=== PATIENT | female | born 1975 | race Caucasian/White ===

== ENCOUNTER 2017-09-25 10:47 | Emergency (ER) | payer OTHER ==
[~2017-09-25] VITALS: Ht 180.3 cm; Wt 117.9 kg
--- NOTE | 2017-09-25 11:10 | ED CARDIAC/CP/PALPITATIONS ---
History of Present Illness General Chief Complaint: Chest Pain Stated Complaint: TROUBLE BREATHING, CHEST PAIN, HAND TINGLES Source: patient, old records Exam Limitations: no limitations Vital Signs & Intake/Output Vital Signs & Intake/Output Vital Signs Date Time Temp Pulse Resp B/P B/P Pulse O2 O2 Flow FiO2 Mean Ox Delivery Rate 09/25 1516 98.4 84 18 149/78 99 ED Intake and Output 09/26 0000 09/25 1200 Intake Total 0 Output Total Balance 0 Intake, Oral 0 Patient 117.934 kg Weight Weight Reported by Patient Measurement Method Allergies Coded Allergies: No Known Allergies (09/25/17) Reconcile Medications Prednisone 20 MG TABLET 1 TAB PO BID ASTHMA Triage Note: PT TO ED FOR C/C OF MID EPIGASTRIC PAIN THAT STARTED ON TUESDAY WITH BLOATING TO AREA. PT THOUGHT IT WAS A HERNIA AND SAW HER SUGEON AND SAID IT WASN'T A HERNIA. PT ALSO REPORTS INCREASED SOB ESPECIALLY WALKING UP STAIRS AND PAIN AND SOB GETS WORSE WHEN PT BENDS FORWARD. ALSO REPORTS L FINGER TINGLING OVER THE LAST FEW DAYS WELL. PT HAS HX OF LYMPHEDEMA BUT DOES REPORT SWELLING IS SLIGHTLY WORSE THAN USUAL. 3/10 CHEST PAIN, WORSE WITH INSPIRATION WELL. Triage Nurses Notes Reviewed? yes : No Patient currently breastfeeds: No HPI: 41F PMH multiple abdominal surgeries (hysterectomy, cholecystectomy, caesarian sections) presenting with 2 days of worsening dyspnea with minimal exertion, upper abdominal induration and pain, intermittent bilateral hand tingling. Patient is very active and exercises 4x/week, but for the past few days has to stop after a few steps to catch her breath, which is extremely unusual for her. She has a history of asthma but is not wheezing and not short of breath at rest. She has significant abdominal pain when bending over. She denies nausea, vomiting, headache, diarrhea, dysuria, constipation. She does report left sided pleuritic chest pain that is non-exertional. She has chronic LE lymphedema with her right leg chronically bigger than her left. There has been no change in this. Past History Travel History Traveled to [place] past 21 day No Medical History Any Pertinent Medical History? see below for history EENT: allergies Respiratory: asthma Endocrine: LYMPHEDEMA Surgical History Surgical History: cholecystectomy, , hysterectomy Psychosocial History What is your primary language Wolof Tobacco Use: Never used ETOH Use: occasional use Illicit Drug Use: denies illicit drug use Family History Hx Contributory? No Review of Systems Review of Systems Constitutional: Reports: no symptoms. EENTM: Reports: no symptoms. Respiratory: Reports: no symptoms. Cardiovascular: Reports: see HPI. GI: Reports: see HPI. Genitourinary: Reports: no symptoms. Musculoskeletal: Reports: no symptoms. Skin: Reports: no symptoms. Neurological/Psychological: Reports: no symptoms. Hematologic/Endocrine: Reports: no symptoms. Immunologic/Allergic: Reports: no symptoms. All Other Systems: Reviewed and Negative Physical Exam Physical Exam General Appearance: well developed/nourished, mild distress Head: atraumatic, normal appearance Eyes: Bilateral: normal appearance. Ears, Nose, Throat: normal pharynx, normal ENT inspection, hearing grossly normal Neck: normal inspection, full range of motion Respiratory: normal breath sounds, no respiratory distress Cardiovascular: regular rate/rhythm Gastrointestinal: Indurated upper abdomen, mildly tender, no rebound or guarding Back: normal inspection, normal range of motion Extremities: normal inspection, normal range of motion Neurologic/Psych: awake, alert, oriented x 3, normal mood/affect Skin: intact, normal color, warm/dry Core Measures ACS in differential dx? No CVA/TIA Diagnosis No Sepsis Present: No Sepsis Focused Exam Completed? No Progress Differential Diagnosis: AMI, aortic dissection, atrial fibrillation, cholecystitis, CHF/pulm edema, costochondritis, hyperkalemia, hypovolemia, hyperthyroid, hyperventilation, intracranial hemorrhage, musculoskeletal pain, myocarditis, pancreatitis, pericarditis, pneumonia, pneumothorax, PSVT, pulmonary embolism, PUD/GERD, PVCs/PACs, respiratory failure, rib fracture, sepsis, unstable angina, V-fib/V-Tach, WPW syndrome Plan of Care: Orders Procedure Date/time Status Heart Healthy Diet 09/25 D Active Laboratory Tests 09/25/17 1512: Troponin I < 0.01 09/25/17 1410: D-Dimer High Sensitivty < 200 Imaging and labs negative for PE, pneumonia, or ACS. Dyspnea is likely related to URI and history of asthma. Will discharge patient on Prednisone and outpatient pulmonary follow up. Diagnostic Imaging: Viewed by Me: CT Scan. Discussed w/RAD: CT Scan. Radiology Impression: PATIENT: USHA FREITAS PRESENT AGE: 41 PATIENT ACCOUNT NO: [id number] : 75 LOCATION: [facility] ORDERING PHYSICIAN: Cory Porras MD SERVICE DATE: 09/25/17 EXAM TYPE: CAT - CTA CHEST-PULMONARY EMBOLISM EXAMINATION: CT ANGIOGRAM OF THE CHEST WITH AND WITHOUT CONTRAST (CT PULMONARY ANGIOGRAM FOR PE) CLINICAL INFORMATION: Sudden dyspnea on exertion. COMPARISON: None TECHNIQUE: Prior to contrast administration, noncontrast localization images were obtained. Subsequently, multidetector volumetric imaging was performed from the thoracic inlet to below the diaphragms following the administration of 95 mL Optiray 350 intravenous contrast. No contrast reaction reported. Sagittal, coronal, and MIP oblique sagittal reformatted images were obtained on the CT workstation, uploaded to PACS, and reviewed. Total exam dose-length product 1634 mGy-cm for combined CT of the chest, abdomen and pelvis. FINDINGS: QUALITY OF STUDY/CONTRAST BOLUS: Exam is limited due to late timing of intravenous contrast injection. There is not optimal opacification of the pulmonary arteries and exam is nondiagnostic for pulmonary embolism. THORACIC AORTA: The thoracic aorta is normal in caliber. No aneurysm or dissection. LUNG: The lungs are clear. PLEURA: There is no pleural effusion or pleural thickening. There is no pneumothorax. MEDIASTINUM: Normal heart size. No pericardial effusion. No hilar or mediastinal lymphadenopathy. No evidence of septal bowing or right heart strain. CHEST WALL/ AXILLA: No axillary or internal mammary lymphadenopathy. OSSEOUS STRUCTURES: No acute or suspicious osseous abnormality. UPPER ABDOMEN: Unremarkable. IMPRESSION : Nondiagnostic exam for pulmonary embolism due to late timing of intravenous contrast. DICTATED BY: Chantal Pollard MD DATE/TIME DICTATED:09/25/171241 ADMINISTRATIVE ASST:SABINA DATE/TIME TRANSCRIBED:09/25/171241, PATIENT: USHA FREITAS PRESENT AGE: 41 PATIENT ACCOUNT NO: [id number] : 75 LOCATION: [facility] ORDERING PHYSICIAN: Cory Porras MD SERVICE DATE: 09/25/17 EXAM TYPE: CAT - CT ABD & PELVIS W IV CONTRAST EXAMINATION: CT ABDOMEN AND PELVIS WITH CONTRAST CLINICAL INFORMATION: Epigastric pain in the indurated epigastric area. History of multiple abdominal surgeries. Evaluate for small bowel obstruction. COMPARISON: None TECHNIQUE: Multidetector volumetric imaging was performed of the abdomen and pelvis following IV administration of 95 mL of Optiray 350 intravenous contrast. Sagittal and coronal reformatted images were obtained on the technologist's workstation. DLP: 1634 mGy-cm FINDINGS: LIVER, GALLBLADDER, AND BILIARY TREE: The liver is normal in size, shape, and attenuation. No focal hepatic lesion or biliary ductal dilatation is present. The gallbladder has been removed. PANCREAS : Unremarkable. SPLEEN: Unremarkable. ADRENAL GLANDS: Unremarkable. KIDNEYS AND URETERS: The kidneys are normal in size, shape, and attenuation. No hydronephrosis, hydroureter, or calculi seen. No perinephric stranding. BLADDER: Not optimally distended but appears unremarkable. GASTROINTESTINAL TRACT: The small and large bowel are unremarkable. The appendix is unremarkable. ABDOMINAL WALL: There are 2 small upper midline ventral hernias containing fat, sagittal reconstructed image 86. The more superior is slightly to the right of midline and measures 1 cm axial image 273 series 6. The more inferior is in the midline axial image 312 series 6 and measures 1 cm. These both contain fat. There is a tiny umbilical hernia containing fat. There are postsurgical changes to the more inferior lower abdominal wall. No other hernia is seen. LYMPH NODES: There are no enlarged lymph nodes. There is no ascites. VASCULAR: The abdominal aorta is normal in caliber. PELVIC VISCERA: The uterus appears to have been removed. There is a 2.3 x 2.7 cm left adnexal cyst. Right adnexa is unremarkable. OSSEOUS STRUCTURES: Unremarkable. IMPRESSION: Two small upper ventral hernias containing fat. Tiny umbilical hernia containing fat. More inferior postsurgical changes of the lower abdominal wall. Postcholecystectomy and hysterectomy. Probable small left ovarian cyst. DICTATED BY: Atul MERINO,Chantal Pal DATE/TIME DICTATED:09/25/171246 ADMINISTRATIVE ASST:SABINA DATE/TIME TRANSCRIBED:09/25/171246 Initial ED EKG: NSR, no ST T wave changes Repeat EKG: unchanged Departure Departure Disposition: HOME OR SELF CARE Condition: Stable Clinical Impression Primary Impression: Asthma exacerbation Referrals: Janak Fischer MD, MD,Frank Cast (PCP/Family) Additional Instructions: Follow up with your pulmonary referral. If you experience worsening shortness of breath or any chest pain, return to emergency room. If you have any new or worsening symptoms, lightheadedness, or any other new symptom, return to emergency room. Departure Forms: Customer Survey General Discharge Information Prescriptions: Current Visit Scripts Prednisone 1 TAB PO BID #10 TAB Critical Care Note Critical Care Note Critical Care Time: 30-74 min General Discharge Information Prescriptions: Current Visit Scripts Prednisone 1 TAB PO BID #10 TAB
[2017-09-25 11:27] LABS: ABSOLUTE BASOPHIL COUNT 0 /CUMM (0.0-0.2); ABSOLUTE EOSINOPHIL COUNT 0.1 /CUMM (0.0-0.7); ABSOLUTE GRANULOCYTE CT 6.2 /CUMM (1.4-6.5); ABSOLUTE LYMPH COUNT 1.6 /CUMM (1.2-3.4); ABSOLUTE MONOCYTE COUNT 0.7 /CUMM (0.10-0.60); BASOPHIL % 0.5 % (0.0-2.0); EOSINOPHIL % 1.3 % (0-5); GRANULOCYTE % 71.4 % (42.2-75.2); HEMATOCRIT 44.8 % (37-47); MEAN CORPUSCULAR HGB 30.9 PG (27.0-31.0); MEAN CORPUSCULAR HGB CONC 33.5 G/DL (33.0-37.0); MEAN CORPUSCULAR VOLUME 92.4 FL (81.0-99.0); MEAN PLATELET VOLUME 9.2 FL (7.4-10.4); PLATELET COUNT 231 /CUMM (130-400); RBC DISTRIBUTION WIDTH 12.7 % (11.5-14.5); RED BLOOD CELL CT 4.85 /CUMM (4.20-5.40); WHITE BLOOD CELL COUNT 8.7 /CUMM (4.8-10.8)
--- NOTE | 2017-09-25 13:16 | CT SCAN REPORT ---
EXAMINATION: CT ANGIOGRAM OF THE CHEST WITH AND WITHOUT CONTRAST (CT PULMONARY ANGIOGRAM FOR PE) CLINICAL INFORMATION: Sudden dyspnea on exertion. COMPARISON: None TECHNIQUE: Prior to contrast administration, noncontrast localization images were obtained. Subsequently, multidetector volumetric imaging was performed from the thoracic inlet to below the diaphragms following the administration of 95 mL Optiray 350 intravenous contrast. No contrast reaction reported. Sagittal, coronal, and MIP oblique sagittal reformatted images were obtained on the CT workstation, uploaded to PACS, and reviewed. Total exam dose-length product 1634 mGy-cm for combined CT of the chest, abdomen and pelvis. FINDINGS: QUALITY OF STUDY/CONTRAST BOLUS: Exam is limited due to late timing of intravenous contrast injection. There is not optimal opacification of the pulmonary arteries and exam is nondiagnostic for pulmonary embolism. THORACIC AORTA: The thoracic aorta is normal in caliber. No aneurysm or dissection. LUNG: The lungs are clear. PLEURA: There is no pleural effusion or pleural thickening. There is no pneumothorax. MEDIASTINUM: Normal heart size. No pericardial effusion. No hilar or mediastinal lymphadenopathy. No evidence of septal bowing or right heart strain. CHEST WALL/AXILLA: No axillary or internal mammary lymphadenopathy. OSSEOUS STRUCTURES: No acute or suspicious osseous abnormality. UPPER ABDOMEN: Unremarkable. IMPRESSION: Nondiagnostic exam for pulmonary embolism due to late timing of intravenous contrast.
--- NOTE | 2017-09-25 13:36 | CT SCAN REPORT ---
EXAMINATION: CT ABDOMEN AND PELVIS WITH CONTRAST CLINICAL INFORMATION: Epigastric pain in the indurated epigastric area. History of multiple abdominal surgeries. Evaluate for small bowel obstruction. COMPARISON: None TECHNIQUE: Multidetector volumetric imaging was performed of the abdomen and pelvis following IV administration of 95 mL of Optiray 350 intravenous contrast. Sagittal and coronal reformatted images were obtained on the technologist's workstation. DLP: 1634 mGy-cm FINDINGS: LIVER, GALLBLADDER, AND BILIARY TREE: The liver is normal in size, shape, and attenuation. No focal hepatic lesion or biliary ductal dilatation is present. The gallbladder has been removed. PANCREAS: Unremarkable. SPLEEN: Unremarkable. ADRENAL GLANDS: Unremarkable. KIDNEYS AND URETERS: The kidneys are normal in size, shape, and attenuation. No hydronephrosis, hydroureter, or calculi seen. No perinephric stranding. BLADDER: Not optimally distended but appears unremarkable. GASTROINTESTINAL TRACT: The small and large bowel are unremarkable. The appendix is unremarkable. ABDOMINAL WALL: There are 2 small upper midline ventral hernias containing fat, sagittal reconstructed image 86. The more superior is slightly to the right of midline and measures 1 cm axial image 273 series 6. The more inferior is in the midline axial image 312 series 6 and measures 1 cm. These both contain fat. There is a tiny umbilical hernia containing fat. There are postsurgical changes to the more inferior lower abdominal wall. No other hernia is seen. LYMPH NODES: There are no enlarged lymph nodes. There is no ascites. VASCULAR: The abdominal aorta is normal in caliber. PELVIC VISCERA: The uterus appears to have been removed. There is a 2.3 x 2.7 cm left adnexal cyst. Right adnexa is unremarkable. OSSEOUS STRUCTURES: Unremarkable. IMPRESSION: Two small upper ventral hernias containing fat. Tiny umbilical hernia containing fat. More inferior postsurgical changes of the lower abdominal wall. Postcholecystectomy and hysterectomy. Probable small left ovarian cyst.
[2017-09-25 15:16] VITALS: BP 149/78
[2017-09-25] MEDS ORDERED: PREDNISONE20 M1 PO (15:37)
== END 2017-09-25 16:08 ==
LOC: ERH 10:47
PROVIDERS: Emergency Medicine
DX: J45.901 Unspecified asthma with (acute) exacerbation (principal); R07.9 Chest pain, unspecified
CPT/HCPCS: 74177; 87804; 87804-59; 93005; 93010

== ENCOUNTER 2018-01-30 12:05 | Emergency (ER) | payer OTHER ==
[~2018-01-30] VITALS: Ht 180.3 cm; Wt 113.4 kg
[~2018-01-30 12:05] MED LIST: PREDNISONE20 M1 PO
--- NOTE | 2018-01-30 13:05 | ED UPPER/LOWER EXTREMITY COMPL ---
History of Present Illness General Chief Complaint: Foot or Ankle Injury Stated Complaint: RT FOOT INJURY Source: patient Exam Limitations: no limitations Vital Signs & Intake/Output Vital Signs & Intake/Output Vital Signs Date Time Temp Pulse Resp B/P B/P Pulse O2 O2 Flow FiO2 Mean Ox Delivery Rate 01/30 1404 98.3 79 18 151/103 100 Room Air 01/30 1211 97.1 90 20 129/77 98 Room Air Allergies Coded Allergies: No Known Allergies (09/25/17) Reconcile Medications Cetirizine HCl (Zyrtec) 10 MG TABLET 1 TAB PO DAILY ALLERGIES (Reported) Fluticasone/Salmeterol (Advair 500-50 Diskus) 500 MCG-50 MCG/DOSE BLST.W.DEV 1 PUF INH BID BREATHING PROBLEMS (Reported) Meloxicam (Mobic) 15 MG TABLET 1 TAB PO DAILY PRN pain Montelukast Sodium (Singulair) 10 MG TABLET 1 TAB PO DAILY ALLERGIES ( Reported) Triage Note: PT TO ED C/O PAIN TO TOP OF RIGHT FOOT X 1 WEEK. STATES HER DAUGHTER STEPPED ON IT AND HAS HAD PAIN SINCE. TRIED MOTRIN WITH SOME RELIEF, TRIED WRAPPING WITH SAMUEL WRAP WITH NO RELIEF. ABLE TO AMBULATE BUT UNABLE TO PUT FOOT FLAT ON GROUND. STATES TOES FEELS NUMB. DECLINING MEDS IN TRIAGE. Triage Nurses Notes Reviewed? yes Onset: Abrupt Duration: constant Timing: recent history Severity: severe Severity Numbers: 7 Method of Injury: direct blow : No Patient currently breastfeeds: No HPI: Patient is a 42-year-old female who presents emergency room stating that 1 week ago her daughter stepped on her right foot while she was wearing flip-flops patient states that since she's been having localized right top of the foot pain and swelling. Patient intermittently taken ibuprofen with mild relief of symptoms. Denies any skin tear, bleeding, ankle pain States she walks with a limp now (Raghavendra Otero) Past History Travel History Traveled to [place] past 21 day No Medical History Any Pertinent Medical History? see below for history EENT: allergies Respiratory: asthma Endocrine: LYMPHEDEMA Surgical History Surgical History: cholecystectomy, , hysterectomy Psychosocial History What is your primary language Thai Tobacco Use: Never used ETOH Use: denies use Illicit Drug Use: denies illicit drug use Family History Hx Contributory? No (Raghavendra Otero) Review of Systems Review of Systems Constitutional: Reports: no symptoms. EENTM: Reports: no symptoms. Respiratory: Reports: no symptoms. Cardiovascular: Reports: no symptoms. Gastrointestinal/Abdominal: Reports: no symptoms. Genitourinary: Reports: no symptoms. Musculoskeletal: Reports: see HPI. Skin: Reports: no symptoms. Neurological/Psychological: Reports: no symptoms. Hematologic/Endocrine: Reports: no symptoms. Immunological: Reports: no symptoms. All Other Systems: Reviewed and Negative (Raghavendra Otero) Physical Exam Physical Exam General Appearance: no apparent distress, alert, comfortable Head: atraumatic Eyes: Bilateral: normal appearance. Ears, Nose, Throat: hearing grossly normal Neck: normal inspection Cardiovascular/Respiratory: no respiratory distress Peripheral Pulses: 2+ dorsalis pedis (R) Neurologic/Tendon: normal sensation, normal motor functions, normal tendon functions, responds to pain, no evidence tendon injury, no pulse deficit Skin: intact, normal color, warm/dry Diagram Feet Top 1) Noted mild swelling and point tenderness skin intact pedal pulse +2 capillary refill less than 2 seconds (Raghavendra Otero) Progress Differential Diagnosis: arterial insufficiency, compartment syndrome, contusion, dislocation, DVT, fracture, gout, septic arthritis, sprain, tendon injury Plan of Care: Orders Procedure Date/time Status Durable Medical Equipment 01/30 1316 Active Patient was neurovascularly intact to right lower extremity and foot. X-rays were obtained no osseous injury or concern to fracture patient will be treated for concerns of contusion Samuel wrap was placed to the right foot by me pre-and post neurovascular was intact patient declined crutches when offered in the emergency room Diagnostic Imaging: Viewed by Me: Radiology Read. Radiology Impression: no acute abnormality, no fracture Comments: PATIENT: USHA FREITAS PRESENT AGE: 42 PATIENT ACCOUNT NO: [id number] : 75 LOCATION: [facility] ORDERING PHYSICIAN: Raghavendra SHEPPARD SERVICE DATE: 01/30/18 EXAM TYPE: RAD - XRY-FOOT COMPLETE, R EXAMINATION: XR FOOT, RIGHT CLINICAL INFORMATION: Right foot stepped on one week ago. Right foot pain. COMPARISON: None TECHNIQUE: AP, lateral, and oblique views of the right foot. FINDINGS: There is no evidence of acute or healing fracture. Bones are in normal alignment. Normal osseous mineralization. No soft tissue air or radiopaque foreign body. No significant abnormality of the bones, joints or soft tissues is demonstrated. IMPRESSION: No evidence of fracture or dislocation in the right foot. Unremarkable right foot radiographs. DICTATED BY: Jose Osborn MD DATE/TIME DICTATED:01/30/181348 DETECTIVE AUTOMOBILE SECTION:SABINA DATE/TIME TRANSCRIBED:01/30/181348 (Raghavendra Otero) Departure Departure Disposition: HOME OR SELF CARE Condition: Stable Clinical Impression Primary Impression: Contusion of right foot Referrals: Mariana MERINO,Acosta Torres MD,Frank Cast (PCP/Family) Additional Instructions: As discussed begin to elevate her foot for swelling begin using the Samuel wrap for swelling. Begin using the crutches until you can walk without pain begin the prescription meloxicam for pain and inflammation, per perceptions waiting at [facility]. If no better in one week follow-up with orthopedic Dr. Peña. If symptoms worsen return to emergency room Departure Forms: Customer Survey General Discharge Information Prescriptions: Current Visit Scripts Meloxicam (Mobic) 1 TAB PO DAILY PRN pain #7 TAB (Raghavendra Otero) PA/MACHINE OPERATIONS SUPERVISOR Co-Sign Statement Statement: ED Attending supervision documentation- [] I saw and evaluated the patient. I have also reviewed all the pertinent lab results and diagnostic results. I agree with the findings and the plan of care as documented in the PA's/MACHINE OPERATIONS SUPERVISOR's documentation. [x] I have reviewed the ED Record and agree with the PA's/MACHINE OPERATIONS SUPERVISOR's documentation. [] Additions or exceptions (if any) to the PAs/MACHINE OPERATIONS SUPERVISOR's note and plan are summarized below: [] (Saurabh Sánchez DO)
[2018-01-30] MEDS ORDERED: SINGULAIR10 M1 PO (13:20)
[2018-01-30] MEDS ORDERED: ZYRTEC10 M3 PO (13:20)
[2018-01-30] MEDS ORDERED: ADVAIR 500-501 EACH INH (13:20)
[2018-01-30] MEDS ORDERED: MOBIC15 M1 PO (13:33)
--- NOTE | 2018-01-30 13:54 | RADIOLOGY REPORT ---
EXAMINATION: XR FOOT, RIGHT CLINICAL INFORMATION: Right foot stepped on one week ago. Right foot pain. COMPARISON: None TECHNIQUE: AP, lateral, and oblique views of the right foot. FINDINGS: There is no evidence of acute or healing fracture. Bones are in normal alignment. Normal osseous mineralization. No soft tissue air or radiopaque foreign body. No significant abnormality of the bones, joints or soft tissues is demonstrated. IMPRESSION: No evidence of fracture or dislocation in the right foot. Unremarkable right foot radiographs.
[2018-01-30 14:04] VITALS: BP 151/103
== END 2018-01-30 14:08 ==
LOC: ERH 12:05
DX: S90.31XA Contusion of right foot, initial encounter (principal); W50.0XXA Accidental hit or strike by another person, initial encounter
CPT/HCPCS: 73630-RT